=== PATIENT | female | born 1980 | race Caucasian/White ===

== ENCOUNTER 2020-08-27 14:32 | Outpatient (REF) | payer OTHER, SELFPAY | END 2020-08-27 14:33 | disposition home or self-care (01) | LOC: HO.LAB 14:32 | PROVIDERS: Visit Provider Internal Medicine | DX: Z20.828 Contact with and (suspected) exposure to other viral communicable diseases (principal) | CPT/HCPCS: C9803; U0003 ==

== ENCOUNTER 2020-10-20 10:45 | Outpatient (REF) | payer OTHER, SELFPAY ==
[2020-10-20 11:35] LABS: MANUAL DIFF FLAG NO
[2020-10-20 11:38] LABS: Basophils Percent Auto 0.4 % (0-2); Eosinophils Absolute Auto 0.2 X10*3/uL (0.0-0.4); Eosinophils Percent Auto 3.4 % (0-4); Hemoglobin 10.1 g/dl (12.0-16.0); Imm Gran Abs Auto 0.03 X10*3/uL (0.00-0.03); Imm Gran Pct Auto 0.4 % (0.0-0.4); Lymphocytes Absolute Auto 2.2 X10*3/uL (1.2-4.9); Lymphocytes Percent Auto 32.6 % (20-40); Mean Corpuscular HGB Conc 28.1 g/dl (31.0-35.0); Mean Corpuscular Volume 71.3 fL (80-98); Mean Platelet Volume 10.2 fL (9.4-12.3); Monocytes Absolute Auto 0.3 X10*3/uL (0.1-1.2); Monocytes Percent Auto 4.2 % (2-11); Neutrophils Absolute Auto 3.9 X10*3/uL (2.0-8.3); Platelet Count 330 X10*3/uL (160-400); Red Blood Count 5.05 X10*6/uL (4.20-5.50); Red Cell Distribution Width 17.8 % (11.0-16.0); White Blood Count 6.7 X10*3/uL (4.8-10.8)
[2020-10-20 12:06] LABS: Anion Gap 11 (12-20); Blood Urea Nitrogen 10 mg/dL (9-16); Calcium 8.7 mg/dL (8.4-10.2); Carbon Dioxide 24 mmol/L (22-29); Chloride 107 mmol/L (96-108); Cholesterol 176 mg/dL; Estimated Glomerular Filt Rate > 60; Glucose Random 214 mg/dL (60-115); HDL Cholesterol 38 mg/dL; LDL Cholesterol Calculated 111 mg/dl; Potassium 4.1 mmol/L (3.3-5.1); Sodium 138 mmol/L (135-145); Triglycerides 138 mg/dL
[2020-10-20 12:09] LABS: Microalbum/Creatinine Ratio Ur 5.6 ug/mg cr
[2020-10-20 12:18] LABS: Estimated Average Glucose 137 mg/dL; Hemoglobin A1c % 6.4 %
[2020-10-20 12:26] LABS: Ferritin 5 ng/mL (10-122); TSH reflex Free T4 1.52 uIU/mL (0.32-4.0)
== END 2020-10-20 10:46 | disposition home or self-care (01) ==
LOC: HO.LAB 10:45
PROVIDERS: PCP Nurse Practitioner Community Health; Visit Provider Nurse Practitioner Community Health
DX: E11.9 Type 2 diabetes mellitus without complications (principal); D50.9 Iron deficiency anemia, unspecified
CPT/HCPCS: 36415; 80048; 80061; 82043; 82728; 83036; 84443; 85025

== ENCOUNTER 2021-01-20 11:24 | Outpatient (REF) | payer OTHER, SELFPAY ==
--- NOTE | ~2021-01-20 | US_ITS ---
EXAMINATION: US PELVIS CLINICAL INFORMATION: Ovarian cyst COMPARISON: None TECHNIQUE: Transabdominal and transvaginal imaging of pelvis was performed. FINDINGS: On transabdominal ultrasound the uterus is retroverted and retroflexed measuring 8.1 cm in length, 4.4 cm in AP and 7.2 cm in transverse dimension. Endometrial thickness is 1.5 cm. The myometrium is homogeneous echotexture. No focal lesions seen. There are small nabothian cysts seen in the cervix. The right ovary measures 3.7 x 2.6 x 2.3 cm and volume 11.6 mL. There are small follicular cysts seen. There is irregular-shaped cyst measuring 2.3 x 1.7 x 1.9 cm likely corpus luteal cyst. There is a small echogenic calcification measuring 0.4 x 0.2 x 0.4 cm. Previously right ovary measures 2.8 x 1.6 x 1.9 cm. The left ovary measures 2.9 x 1.7 x 1.9 cm and volume 4.9 mL. There are small follicular cysts. In addition there is a anechoic cyst with calcification and irregular borders measuring 0.8 x 0.6 x 0.8 cm likely complex cyst. There is small amount of free fluid in the cul-de-sac. US/US transvaginal IMPRESSION: Retroverted and retroflexed uterus. No focal lesion seen. Small nabothian cysts in the cervix. There are bilateral ovarian corpus luteal cysts. There is calcification and comet tail artifact in the left ovary likely a complex cyst. There is small amount of free fluid in cul-de-sac.
--- NOTE | ~2021-01-20 | US_ITS ---
EXAMINATION: US PELVIS CLINICAL INFORMATION: Ovarian cyst COMPARISON: None TECHNIQUE: Transabdominal and transvaginal imaging of pelvis was performed. FINDINGS: On transabdominal ultrasound the uterus is retroverted and retroflexed measuring 8.1 cm in length, 4.4 cm in AP and 7.2 cm in transverse dimension. Endometrial thickness is 1.5 cm. The myometrium is homogeneous echotexture. No focal lesions seen. There are small nabothian cysts seen in the cervix. The right ovary measures 3.7 x 2.6 x 2.3 cm and volume 11.6 mL. There are small follicular cysts seen. There is irregular-shaped cyst measuring 2.3 x 1.7 x 1.9 cm likely corpus luteal cyst. There is a small echogenic calcification measuring 0.4 x 0.2 x 0.4 cm. Previously right ovary measures 2.8 x 1.6 x 1.9 cm. The left ovary measures 2.9 x 1.7 x 1.9 cm and volume 4.9 mL. There are small follicular cysts. In addition there is a anechoic cyst with calcification and irregular borders measuring 0.8 x 0.6 x 0.8 cm likely complex cyst. There is small amount of free fluid in the cul-de-sac. US/US pelvic complete IMPRESSION: Retroverted and retroflexed uterus. No focal lesion seen. Small nabothian cysts in the cervix. There are bilateral ovarian corpus luteal cysts. There is calcification and comet tail artifact in the left ovary likely a complex cyst. There is small amount of free fluid in cul-de-sac.
== END 2021-01-20 11:25 | disposition home or self-care (01) ==
LOC: HO.US 11:24
PROVIDERS: Visit Provider Nurse Practitioner Community Health
DX: N83.299 Other ovarian cyst, unspecified side (principal)
CPT/HCPCS: 76830; 76856

== ENCOUNTER → 2021-02-05 15:34 | Outpatient (BNVA) | payer OTHER, SELFPAY | PROVIDERS: PCP Nurse Practitioner Community Health; Visit Provider Advanced Practice Midwife | DX: Z13.89 Encounter for screening for other disorder (principal) | CPT/HCPCS: Q3014 ==

== ENCOUNTER 2021-03-02 10:14 | Outpatient (REF) | payer OTHER, SELFPAY ==
[2021-03-02 12:02] LABS: Hematocrit 32.4 % (37-47); Hemoglobin 9.1 g/dl (12.0-16.0); Mean Corpuscular HGB Conc 28.1 g/dl (31.0-35.0); Mean Corpuscular Hemoglobin 19.8 pg (27.0-33.0); Mean Corpuscular Volume 70.4 fL (80-98); Mean Platelet Volume 9.9 fL (9.4-12.3); Platelet Count 306 X10*3/uL (160-400); Red Cell Distribution Width 18.9 % (11.0-16.0); White Blood Count 6.6 X10*3/uL (4.8-10.8)
[2021-03-03 10:01] LABS: CA-125 24 U/mL (<35)
== END 2021-03-02 10:15 | disposition home or self-care (01) ==
LOC: HO.LAB 10:14
PROVIDERS: Visit Provider Advanced Practice Midwife
DX: D64.9 Anemia, unspecified (principal); N83.299 Other ovarian cyst, unspecified side
CPT/HCPCS: 36415; 85027; 86304

== ENCOUNTER 2021-08-09 12:50 | Outpatient (REF) | payer OTHER, SELFPAY ==
--- NOTE | ~2021-08-09 | US_ITS ---
EXAMINATION: US PELVIS CLINICAL INFORMATION: Ovarian cyst. COMPARISON: None. TECHNIQUE: Ultrasound of the pelvis is performed using both transabdominal and transvaginal transducers along with Doppler. Transvaginal imaging is performed due to inadequate visualization transabdominally. FINDINGS: Uterus: The uterus is retroverted and retroflexed and measures 8.8 cm in length, 3.9 mL in AP and 5.6 cm in transverse dimension. The double wall endometrial thickness is 0.8-1.0 cm. The uterus is smooth in contour and has normal myometrial echogenicity. No visible fibroid. There are small nabothian cysts in the cervix. Adnexa: Both ovaries are visualized. There is normal color flow to the adnexa. There is no ovarian torsion. There is no pelvic ascites or fluid collection. Right ovary measures 2.5 x 3.0 x 2.7 cm. Volume 10.6 mL. There is a corpus luteal cyst measuring 1.9 x 1.2 x 1.3 cm. Previously, right ovary measured 3.7 x 2.6 x 2.3 cm Left ovary measures 2.6 x 2.0 x 1.5 cm. Volume 4.1 mL. Previously, left ovary measured 2.9 x 1.7 x 1.9 cm. There is free fluid adjacent to the left ovary with echogenic calcifications. US/US pelvic and transvaginal IMPRESSION: Retroverted and retroflexed uterus but otherwise unremarkable. Small nabothian cysts in the cervix. Small corpus luteal cyst right ovary. Echogenic calcification and free fluid adjacent to left ovary.
== END 2021-08-09 12:51 | disposition home or self-care (01) ==
LOC: HO.US 12:50
PROVIDERS: Visit Provider Advanced Practice Midwife
DX: N83.299 Other ovarian cyst, unspecified side (principal)
CPT/HCPCS: 76830; 76856

== ENCOUNTER 2021-08-11 09:50 | Outpatient (REF) | payer OTHER, SELFPAY ==
[2021-08-11 16:09] LABS: CT PCR NOT DETECTED (Not Detect.); NG PCR NOT DETECTED (Not Detect.)
[2021-08-12 11:50] LABS: BV Int Neg Control Negative (Negative); BV Int Pos Control Positive (Positive)
[2021-08-13 20:47] LABS: HPV mRNA E6/E7 rflx Not Detected (Not Detected)
== END 2021-08-11 09:51 | disposition home or self-care (01) ==
LOC: HO.LAB 09:50
PROVIDERS: Visit Provider Advanced Practice Midwife
DX: Z01.419 Encounter for gynecological examination (general) (routine) without abnormal findings (principal); N83.299 Other ovarian cyst, unspecified side; N92.0 Excessive and frequent menstruation with regular cycle; Z20.2 Contact with and (suspected) exposure to infections with a predominantly sexual mode of transmission
CPT/HCPCS: 87480; 87491; 87510; 87591; 87624; 87660; 88142

== ENCOUNTER → 2021-08-16 11:01 | Outpatient (BNVA) | payer OTHER, SELFPAY | PROVIDERS: PCP Internal Medicine Endocrinology, Diabetes & Metabolism; Visit Provider Advanced Practice Midwife | DX: N83.11 Corpus luteum cyst of right ovary (principal); N92.0 Excessive and frequent menstruation with regular cycle; D64.9 Anemia, unspecified; Z71.2 Person consulting for explanation of examination or test findings | CPT/HCPCS: Q3014 ==

== ENCOUNTER 2021-12-14 09:16 | Outpatient (REF) | payer OTHER, SELFPAY ==
[2021-12-14 10:45] LABS: Hematocrit 34.4 % (37.0-47.0); Hemoglobin 9.5 g/dl (12.0-16.0); Immature Retic Fraction 24.8 % (3.0-15.9); Mean Corpuscular HGB Conc 27.6 g/dl (31.0-35.0); Mean Corpuscular Volume 68.8 fL (80.0-98.0); Platelet Count 340 X10*3/uL (160-400); Red Cell Distribution Width 19.4 % (11.0-16.0); Retic HGB Equivalent 20.4 pg (30.0-35.0); Reticulocyte Percent 1.3 % (0.5-1.8); Reticulocytes Absolute 0.067 X10*6/uL (0.026-0.095); White Blood Count 6.9 X10*3/uL (4.8-10.8)
[2021-12-14 10:52] LABS: Estimated Average Glucose 137 mg/dL; Hemoglobin A1c % 6.4 %
[2021-12-14 11:24] LABS: Anion Gap 12 (12-20); Blood Urea Nitrogen 9 mg/dL (9-16); Calcium 8.9 mg/dL (8.4-10.2); Carbon Dioxide 22 mmol/L (22-29); Chloride 107 mmol/L (96-108); Estimated Glomerular Filt Rate > 60; Glucose Random 108 mg/dL (60-115); Potassium 4.3 mmol/L (3.3-5.1); Sodium 137 mmol/L (135-145)
[2021-12-14 11:31] LABS: Ferritin 7 ng/mL (10-250)
[2021-12-14 11:44] LABS: Vitamin B12 212 pg/mL (200-900)
[2021-12-18 17:16] LABS: Methylmalonic Acid 59 nmol/L (87-318)
== END 2021-12-14 09:17 | disposition home or self-care (01) ==
LOC: HO.LAB 09:16
PROVIDERS: PCP Nurse Practitioner Community Health; Visit Provider Nurse Practitioner Community Health
DX: D50.9 Iron deficiency anemia, unspecified (principal); E53.8 Deficiency of other specified B group vitamins; E11.9 Type 2 diabetes mellitus without complications
CPT/HCPCS: 36415; 80048; 82607; 82728; 83036; 83921; 85027; 85045

== ENCOUNTER 2022-11-23 11:04 | Outpatient (REF) | payer OTHER, SELFPAY ==
[2022-11-24 01:09] LABS: CT PCR NOT DETECTED (Not Detect.); NG PCR NOT DETECTED (Not Detect.)
[2022-11-24 10:48] LABS: BV Int Neg Control Negative (Negative); BV Int Pos Control Positive (Positive)
== END 2022-11-23 11:05 | disposition home or self-care (01) ==
LOC: HO.LAB 11:04
PROVIDERS: PCP Nurse Practitioner Community Health; Visit Provider Advanced Practice Midwife
DX: Z01.419 Encounter for gynecological examination (general) (routine) without abnormal findings (principal); Z20.2 Contact with and (suspected) exposure to infections with a predominantly sexual mode of transmission; R21 Rash and other nonspecific skin eruption; N83.299 Other ovarian cyst, unspecified side
CPT/HCPCS: 0353U; 87480; 87510; 87660

== ENCOUNTER 2022-11-23 11:38 | Outpatient (REF) | payer OTHER, SELFPAY | END 2022-11-23 11:39 | disposition home or self-care (01) | LOC: HO.LNP 11:38 | PROVIDERS: Visit Provider Advanced Practice Midwife | DX: Z13.89 Encounter for screening for other disorder (principal) ==